=== PATIENT | male | born 1995 | race Caucasian/White ===

== ENCOUNTER 2021-07-18 20:23 | Emergency (ER) | payer MEDICAID, SELFPAY ==
[~2021-07-18] VITALS: Ht 185.4 cm; Wt 90.7 kg
[~2021-07-18 20:23] MED LIST: DOCU-144 PO; FERR236T3 PO; HYDR-3919 PO; LEVO500T89 PO; MULT400T7 PO
[2021-07-18 20:46] VITALS: BP_SYST 123
--- NOTE | 2021-07-18 20:46 | NUR ---
Patient to ER tent for evaluation.
--- NOTE | 2021-07-18 20:49 | NUR ---
Patient complaining of sore throat x 3 days with body aches. pain 4/10
[2021-07-18 21:28] LABS: STREPTOCOCCUS A SCREEN (RAPID) POSITIVE (NEGATIVE)
--- NOTE | 2021-07-18 21:41 | NUR ---
ER Dr. Nails at bedside examining patient.
[2021-07-18] MEDS ORDERED: AMOX500C2 PO (22:00)
[2021-07-18 22:06] VITALS: BP_SYST 116
--- NOTE | 2021-07-18 22:06 | NUR ---
Patient given written and verbal discharge instructions and verbalizes understanding. ER MD discussed with patient the results and treatment provided. Patient in stable condition. ID arm band removed. Rx of amoxicillin given. Patient educated on pain management and to follow up with PMD. Pain Scale 0/10 Opportunity for questions provided and answered. Medication side effect fact sheet provided.
== END 2021-07-18 22:06 | disposition home or self-care (01) ==
LOC: SED 20:23
DX: J02.0 Streptococcal pharyngitis (principal); Z79.899 Other long term (current) drug therapy; Z20.822 Contact with and (suspected) exposure to COVID-19
CPT/HCPCS: 36415; 86403; 87081; 99283

== ENCOUNTER 2021-10-27 14:50 | Emergency (ER) | payer MEDICAID, SELFPAY ==
[~2021-10-27] VITALS: Ht 180.3 cm; Wt 77.1 kg
[~2021-10-27 14:50] MED LIST changes: +AMOX500C2 PO; -LEVO500T89 PO; +LEVO500T90 PO
[2021-10-27 15:00] VITALS: BP_SYST 120
--- NOTE | 2021-10-27 15:00 | NUR ---
Patient to ER bed TENT1 to gown for evaluation. Side rails up.
--- NOTE | 2021-10-27 15:36 | NUR ---
ER Dr. KWAN IN TENT examining patient.
--- NOTE | 2021-10-27 15:52 | NUR ---
Swabbed for COVID. Waiting for results.
[2021-10-27 17:15] VITALS: BP_SYST 120
--- NOTE | 2021-10-27 17:15 | NUR ---
Patient given written and verbal discharge instructions and verbalizes understanding. ER MD discussed with patient the results and treatment provided. Patient in stable condition. ID arm band removed. NO Rx of given. Patient educated on pain management and to follow up with PMD. Pain Scale 0 Opportunity for questions provided and answered. Medication side effect fact sheet provided.
== END 2021-10-27 17:15 | disposition home or self-care (01) ==
LOC: SED 14:50
DX: J02.9 Acute pharyngitis, unspecified (principal); Z79.899 Other long term (current) drug therapy; Z20.822 Contact with and (suspected) exposure to COVID-19
CPT/HCPCS: 36415; 99283

== ENCOUNTER 2023-04-21 10:02 | Emergency (ER) | payer MEDICAID ==
[~2023-04-21] VITALS: Ht 188 cm; Wt 86.2 kg
[~2023-04-21 10:02] MED LIST changes: +LEVO-62 PO; -LEVO500T90 PO
[2023-04-21 10:41] VITALS: BP_SYST 118
--- NOTE | 2023-04-21 11:00 | NUR ---
TO HW-1. COMFORT MEASURES AND SUPPORTIVE CARE INITIATED. PREP FOR ERMD EVAL. PT STABLE. NAD.
[2023-04-21 11:22] LABS: BASOPHILS % (AUTO) 0.9 % (0.0-2.0); CALCIUM 8.9 mg/dL (8.4-11.0); CREATININE 0.82 mg/dL (0.55-1.30); EOSINOPHILS # (AUTO) 0.1 K/uL (0.0-0.4); EOSINOPHILS % (AUTO) 1.3 % (0.0-4.0); HEMATOCRIT 40.2 % (36-54); HEMOGLOBIN 14.1 g/dL (14.0-18.0); LYMPHOCYTES # (AUTO) 1.9 K/uL (1.0-5.5); LYMPHOCYTES % (AUTO) 35.5 % (20.5-51.5); MEAN CORPUSCULAR HEMOGLOBIN 32 pg (27-31); MEAN CORPUSCULAR HGB CONC 35 % (32-36); MEAN CORPUSCULAR VOLUME 91 fL (79.0-98.0); MONOCYTES # (AUTO) 0.6 K/uL (0.0-1.0); MONOCYTES % (AUTO) 11.7 % (1.7-9.3); NEUTROPHILS # (AUTO) 2.7 K/uL (1.8-7.7); NEUTROPHILS % (AUTO) 50.6 % (40.0-70.0); PLATELET COUNT (AUTO) 247 K/uL (130-430); RED BLOOD CELL COUNT(AUTO) 4.42 MIL/uL (4.2-6.2); RED CELL DISTRIBUTION WIDTH 12.1 % (9.0-15.0); WHITE BLOOD COUNT (AUTO) 5.4 K/uL (4.8-10.8)
[2023-04-21 11:27] LABS: ALBUMIN 4.1 g/dL (3.4-4.8); C-REACTIVE PROTEIN QUANT 0.6 mg/dL (0-0.5); TOTAL BILIRUBIN 0.6 mg/dL (0.0-1.0)
--- NOTE | 2023-04-21 12:28 | NUR ---
PT AGREES WITH DC PLAN. PT VERB UNDERSTANDING OF DC PLAN BY DR. WEISS.
[2023-04-21 12:29] VITALS: BP_SYST 112
== END 2023-04-21 12:28 | disposition home or self-care (01) ==
LOC: SED 10:02
DX: K64.4 Residual hemorrhoidal skin tags (principal); K62.89 Other specified diseases of anus and rectum; R50.9 Fever, unspecified; Z79.899 Other long term (current) drug therapy
CPT/HCPCS: 36415; 72192-TC; 76376; 80053; 83605; 85025; 86140; 99284